=== PATIENT | female | born 1990 | race Caucasian/White ===

== ENCOUNTER 2020-03-15 10:40 | Emergency (ER) | payer OTHER ==
[2020-03-15 10:47] VITALS: BP 125/79
[2020-03-15] MEDS ORDERED: HYDR-3281 PO (11:16)
[2020-03-15] MEDS ORDERED: AMOX-424 MT (11:16)
== END 2020-03-15 11:53 | disposition home or self-care (01) ==
LOC: ER 10:40
DX: K08.89 Other specified disorders of teeth and supporting structures (principal); R60.9 Edema, unspecified
CPT/HCPCS: 99283

== ENCOUNTER 2021-10-24 17:02 | Emergency (ER) | payer OTHER ==
[~2021-10-24] VITALS: Ht 165.1 cm; Wt 112.0 kg
[~2021-10-24 17:02] MED LIST: AMOX-424 MT; HYDR-4346 PO
[2021-10-24 17:04] VITALS: BP 137/94
== END 2021-10-24 20:48 | disposition home or self-care (01) ==
LOC: ER 17:02
DX: R20.2 Paresthesia of skin (principal)
CPT/HCPCS: 81025; 82962; 99282